=== PATIENT | female | born 1995 | race African-American/Black ===

== ENCOUNTER 2019-07-08 09:19 | Emergency (ER) | payer MEDICAID, OTHER ==
[~2019-07-08] VITALS: Ht 157.5 cm; Wt 55.8 kg
[~2019-07-08 09:19] MED LIST: VICODIN 5-5001 EACH PO
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
[2019-07-08] MEDS ORDERED: PRENATAL 19 CH1 EACH PO (09:51)
[2019-07-08 09:58] LABS: BASOPHILS % (AUTO) 1.8 % (0.0-2.0); EOSINOPHILS % (AUTO) 3.9 % (0.0-3.0); HEMATOCRIT 40.6 % (37.0-47.0); HEMOGLOBIN 14.2 G/DL (12.0-16.0); LYMPHOCYTES % (AUTO) 43.5 % (20.0-45.0); MEAN CORPUSCULAR VOLUME 89 FL (80-99); MONOCYTES % (AUTO) 7.5 % (1.0-10.0); NEUTROPHILS % (AUTO) 43.3 % (45.0-75.0); PLATELET COUNT 331 K/UL (150-450); RED BLOOD COUNT 4.56 M/UL (4.20-5.40); RED CELL DISTRIBUTION WIDTH 10.9 % (11.6-14.8); WHITE BLOOD COUNT 7.9 K/UL (4.8-10.8)
[2019-07-08 10:00] LABS: APPEARANCE,URINE CLEAR; BILIRUBIN, URINE NEGATIVE (NEGATIVE); COLOR,URINE PALE YELLOW; GLUCOSE, URINE (UA) NEGATIVE (NEGATIVE); KETONES,URINE NEGATIVE (NEGATIVE); LEUKOCYTE ESTERASE ,URINE 3+ (NEGATIVE); NITRITE,URINE NEGATIVE (NEGATIVE); PH,URINE 6 (4.5-8.0); PROTEIN,URINE NEGATIVE (NEGATIVE); UROBILINOGEN,URINE NORMAL MG/DL (0.0-1.0)
[2019-07-08 10:09] LABS: ANION GAP 13 mmol/L (5-15); BLOOD UREA NITROGEN 10 mg/dL (7-18); CALCIUM 8.9 MG/DL (8.5-10.1); CARBON DIOXIDE 21 MMOL/L (21-32); CHLORIDE 104 MMOL/L (98-107); CREATININE 0.5 MG/DL (0.55-1.30); POTASSIUM 4.3 MMOL/L (3.5-5.1); SODIUM 138 MMOL/L (136-145)
[2019-07-08 10:13] LABS: ALANINE AMINOTRANSFERASE 19 U/L (12-78); ALBUMIN 3.7 G/DL (3.4-5.0); ALKALINE PHOSPHATASE 75 U/L (46-116); ASPARTATE AMINO TRANSFERASE 20 U/L (15-37); BILIRUBIN,TOTAL 0.6 MG/DL (0.2-1.0)
[2019-07-08] MEDS ORDERED: Cephalexin 250mg/5ml Susp 100mL Bottle ORAL ONE (10:45)
--- NOTE | 2019-07-08 11:09 | Diagnostic Imaging Report ---
Indication: First trimester 23-year-old female presenting with vaginal bleeding Technique: Grayscale and duplex Doppler imaging of the pelvis performed utilizing a transabdominal scan and endovaginal scan. Comparison: None Findings: There is a single viable intrauterine gestational age estimated at 6 weeks one day by crown length. heart tones demonstrated. Yolk sac noted. Both ovaries are demonstrated and appear normal with dopplerable blood flow. Uterus measures 8.9 x 6.4 x 5.4 cm. Right ovary 2.7 x 1.9 x 2.8 cm. Left ovary 5.2 x 2.2 x 3.5 cm. IMPRESSION: Single living intrauterine 6 weeks one day gestational age.
[2019-07-08] MEDS ORDERED: CEPHALEXIN500 MG ORAL (11:20)
[2019-07-08 11:39] VITALS: BP 116/72
== END 2019-07-08 11:40 | disposition home or self-care (01) ==
LOC: EMR 09:45
DX: O26.851 Spotting complicating pregnancy, first trimester (principal); O23.41 Unspecified infection of urinary tract in pregnancy, first trimester; Z3A.01 Less than 8 weeks gestation of pregnancy; Z90.81 Acquired absence of spleen; Z87.891 Personal history of nicotine dependence
CPT/HCPCS: 36415; 76801; 76817; 80053; 81003; 83690; 84144; 84702; 85025; 86850; 86900; 86901; Z7502; 99284